=== PATIENT | male | born 1995 ===

== ENCOUNTER 2024-12-01 12:21 | Emergency (ER) | payer MEDICAID, SELFPAY ==
[2024-12-01 12:28] VITALS: BP 117/71; PULSE 52; RESP 16; TEMP 36.4; O2SAT 100; BMI 25.1
--- NOTE | 2024-12-01 12:37 | ED.GENADULT ---
HPI - General Adult General Chief complaint: Skin/Abscess/Foreign Body Stated complaint: Lump on neck Time Seen by Provider: 12/01/24 12:33 Source: patient Mode of arrival: ambulatory Limitations: no limitations History of Present Illness ED Provider: Arie Hu HPI narrative: 29-year-old male presents to ED for red lobe and a backside of right side of neck that is painful to touch. Patient states that is been present for couple of days. Patient denies any recent trauma, weight loss, night sweats, fever, chills, swelling of anterior of the neck, swelling lump of clavicle, or any umbilical mass. Patient denies any recent trauma. patient states red lump occurred after shaving Related Data Previous Rx's ?Medication ?Instructions ?Recorded cephalexin 500 mg capsule 500 mg PO QID 7 days #28 caps 12/01/24 mupirocin 2 % topical ointment 1 appl topical TID 7 days #22 grams 12/01/24 Allergies Allergy/AdvReac Type Severity Reaction Status Date / Time No Known Allergies Allergy Verified 12/01/24 12:30 Review of Systems Review of Systems: Red lump Yes all other systems are reviewed and are negative [facility] Social History Social History Advance Directives: No Advance Directives Information Provided: No Do you have a plan to hurt others: No Plan Physical Exam ED Vital Signs: Vital Signs - 24 hr 12/01/24 12:28 Temperature 97.6 F Pulse Rate 52 Respiratory Rate 16 Blood Pressure 117/71 Pulse Oximetry 100 Oxygen Delivery Method Room Air BMI result Body Mass Index 25.1 Const General: cooperative, healthy appearing, comfortable, no acute distress, well developed, alert, awake and Physically active Orientation/consciousness: patient oriented x3 HENMT Other: Head: Yes normal to inspection, Yes No palpable skull fracture present, Yes normocephalic and Yes atraumatic Ears: hearing grossly normal bilaterally, external ears normal, TM's normal bilaterally, TM normal on the right, TM normal on the left, EAC's normal, mastoids normal and no periauricular adenopathy Throat: Yes posterior oropharynx normal, Yes tonsils normal and Yes uvula midline Eyes General: appearance normal, both eyes and all related structures Neck Neck: Yes normal visual inspection, Yes full ROM, Yes no lymphadenopathy, Yes no meningeal signs, Yes trachea midline, Yes supple, No anterior neck swelling and No tender Chest Chest palpation & inspection: normal inspection of the chest and normal palpation of entire chest wall Resp Effort & Inspection: normal respiratory effort and able to speak in complete sentences Auscultation: clear to auscultation bilaterally Cardio Jugular venous distension: no JVD Heart sounds: S1 normal heart sound present and S2 normal heart sound present GI Inspection: Yes normal to inspection Palpation (GI): Soft to palpation, not firm, nontender, no guarding and not rigid General: Yes no CVA tenderness Back/Spine/Pelvis Back: no CVA tenderness and No back tenderness Skin General skin exam: no rashes or lesions noted, elasticity normal and turgor normal Neuro General: patient oriented x3, gait normal, tone normal, moves all extremities, Normal light touch and pain sensation, no meningeal signs, no focal motor deficits, CN's II-XI intact bilaterally and normal sensation to monofilament Extrem General: Yes normal to inspection, Yes full ROM and Yes capillary refill normal Psych Appearance: grossly normal, well kempt and not disheveled Medical Decision Making Medical Decision Making MDM Narrative: 29-year-old male presents to ED for painful bump on lower part of hair loss/neck with redness. Patient has he recently shaved at [facility] and then started having a bump in the redness. Patient denies any neck swelling, weight loss, night sweats, fever, or chills. Physical exam does not indicate lymphoma. Physical exam indicate more carbuncle, folliculitits, early abscess. Negative for cervical lymphadenopathy, subclavicular lymphadenopathy, or umbilical lymphadenopathy. Patient explained worrisome signs and informed to return to the ED immediately. Patient to be discharged with antibiotics. patient given information to follow up with [facility] for re-evaluation to make sure nothing serious like a skin cancer. Patient given information to call Dermatology Clinic. not suspecting retropharyngeal abscess, Carlos's angina, epidural abscess, meningitis, osteomylelitits, necrotizing fascitis, or any life threatening etiology. no indication for incision and drainage. Differential Diagnosis Differential Diagnoses: The differential diagnosis associated with the presentation includes (Cellulitis, abscess, folliculitis, carbuncle) Admission/Observation Consideration of admission/observation: Escalation of care including admission/observation considered Independent Historian Clinical information obtained from an independent historian. History obtained from or confirmed by: Other (pateint) External Record Review External record reviewed: Other Prescription Management I considered prescription management with: Antibiotic Discharge Plan Discharge Clinical Impression: Carbuncle and furuncle, Folliculitis Patient Disposition: Home, Self-Care Instructions: Furunculosis and Carbunculosis (ED), Folliculitis (ED), Abscess (ED) Additional Instructions: Return to the ED immediately for any increased swelling, redness, bluish black discoloration, blackness, pus drainage, foul odor, fever, chills, neck swelling, drooling, change in voice, weight loss, night sweats, or any other concerning symptoms. Recommend follow up with primary care provider. Also recommend follow-up with [facility] [address], [place] [address]. [email or web address] you can make an appointment online. Also reccommend warm compress on area four times a day for 15 minutes. Prescriptions: New mupirocin 2 % ointment 1 appl topical TID 7 Days Qty: 22 0RF cephalexin 500 mg capsule 500 mg PO QID 7 Days Qty: 28 0RF Stand Alone Forms: Work/School Release Discharge Date/Time: 12/01/24 13:14 Print Language: Thai
== END 2024-12-01 13:14 | disposition home or self-care (01) ==
PROVIDERS: Emergency Provider Emergency Medicine
DX: L02.831 Carbuncle of head [any part, except face] (principal); L73.9 Follicular disorder, unspecified; M54.2 Cervicalgia; R22.1 Localized swelling, mass and lump, neck
CPT/HCPCS: 99281; 99283